=== PATIENT | male | born 1990 | race Caucasian/White ===

== ENCOUNTER 2021-01-19 16:48 | Emergency (ER) | payer SELFPAY ==
[~2021-01-19] VITALS: Ht 182.9 cm; Wt 111.4 kg
[2021-01-19 16:58] VITALS: BP 186/88
== END 2021-01-19 18:19 | disposition home or self-care (01) ==
LOC: ER 16:48
DX: F32.9 Major depressive disorder, single episode, unspecified (principal); Z72.89 Other problems related to lifestyle
CPT/HCPCS: 99281

== ENCOUNTER 2022-05-16 20:36 | Emergency (ER) | payer OTHER ==
[~2022-05-16] VITALS: Ht 182.9 cm; Wt 115.9 kg
[2022-05-16 21:30] LABS: BASOPHILS # (AUTO) 0.1 X10'3 (0-0.2); BASOPHILS % (AUTO) 0.6 % (0-1); EOSINOPHILS % (AUTO) 7.3 % (0-6); HEMOGLOBIN 14.1 g/dl (14.0-17.9); LYMPHOCYTES % (AUTO) 15.4 % (21-51); MEAN CORPUSCULAR HGB CONC 33.6 g/dL (33.0-36.5); MEAN CORPUSCULAR VOLUME 89.2 FL (78-98); MEAN PLATELET VOLUME 8.3 FL (7.4-10.4); MONOCYTES # (AUTO) 1.4 X10'3 (0-0.9); MONOCYTES % (AUTO) 10.3 % (2-12); NEUTROPHILS # (AUTO) 8.7 X10'3 (1.8-7.7); NEUTROPHILS % (AUTO) 66.4 % (42-75); PLATELET COUNT 367 X10'3 (140-440); RED CELL DISTRIBUTION WIDTH 13.4 % (11.5-14.5); WHITE BLOOD COUNT 13.1 X10'3 (4.5-11.0)
[2022-05-16 21:31] LABS: CLARITY,URINE CLEAR (Clear); COLOR,URINE YELLOW (Yellow); GLUCOSE, URINE NEGATIVE (Neg); KETONES,URINE NEGATIVE (Neg); LEUKOCYTE ESTERASE ,URINE NEGATIVE (Neg); NITRITES, URINE NEGATIVE (Neg); OCCULT BLOOD,URINE NEGATIVE (Neg); PH,URINE 5.5 (4.8-8.0); PROTEIN,URINE NEGATIVE (Neg); UROBILINOGEN,URINE 0.2 E.U/dL (0.2-1.0)
[2022-05-16 21:32] LABS: UA COLLECTION TYPE VOIDED
[2022-05-16 21:44] LABS: ALANINE AMINOTRANSFERASE 32 U/L (12-78); ALBUMIN/GLOBULIN RATIO 0.7 (1.1-1.5); ALKALINE PHOSPHATASE 69 IU/L (46-116); ANION GAP 9 (8-16); ASPARTATE AMINO TRANSFERASE 24 U/L (10-37); BILIRUBIN,TOTAL 0.6 MG/DL (0.1-1.0); BLOOD UREA NITROGEN 11 MG/DL (7-18); BUN/CREATININE RATIO 11.2 (5.4-32.0); CALCIUM 8.4 MG/DL (8.5-10.1); CHLORIDE 101 MMOL/L (99-107); CREATININE 0.98 MG/DL (0.60-1.10); GLUCOSE 103 MG/DL (70-104); LIPASE 228 U/L (73-393); POTASSIUM 3.8 MMOL/L (3.5-5.1); SODIUM 139 MMOL/L (135-145); TOTAL CARBON DIOXIDE 28.9 MMOL/L (24-32); TOTAL PROTEIN 7.1 G/DL (6.4-8.2); eGFR 89 ML/MIN
[2022-05-17 02:23] VITALS: BP 158/81
--- NOTE | 2022-05-17 02:30 | NUR ---
I agree with A Rehana Rivas assessment.
[2022-05-17] MEDS ORDERED: ondansetron/PF 4mg/2ml inj IV ONE (03:55)
[2022-05-17] MEDS ORDERED: HYDROcodone/acetaminophen 10/325mg tab PO ONE (04:15)
[2022-05-17] MEDS: morphine 4 MG/ML inj SYRINge IV PRN ×2 (04:21→04:37)
== END 2022-05-17 04:39 | disposition home or self-care (01) ==
LOC: ER 20:36
DX: R10.84 Generalized abdominal pain (principal); K92.1 Melena; K92.2 Gastrointestinal hemorrhage, unspecified
CPT/HCPCS: 36415; 74176; 80053; 81003; 83690; 85025; 96374; 99284; J2405

== ENCOUNTER 2022-10-09 08:09 | Emergency (ER) | payer OTHER ==
[2022-10-09] VITALS (12 sets, daily range): BP systolic 111–156; BP diastolic 65–98
[~2022-10-09] VITALS: Ht 182.9 cm; Wt 113.4 kg
[~2022-10-09 08:09] MED LIST: ADAL40PE SUBCUT; HYDR-3972 PO; ONDA-104 PO
[2022-10-09 09:02] LABS: BASOPHILS # (AUTO) 0.1 X10'3 (0-0.2); BASOPHILS % (AUTO) 1.6 % (0-1); EOSINOPHILS # (AUTO) 0.6 X10'3 (0-0.9); EOSINOPHILS % (AUTO) 7.5 % (0-6); LYMPHOCYTES # (AUTO) 1.8 X10'3 (1.1-4.8); LYMPHOCYTES % (AUTO) 22.4 % (21-51); MEAN CORPUSCULAR HEMOGLOBIN 20.9 PG (27.0-31.0); MEAN CORPUSCULAR HGB CONC 30.9 g/dL (33.0-36.5); MEAN CORPUSCULAR VOLUME 67.5 FL (78-98); MEAN PLATELET VOLUME 6.6 FL (7.4-10.4); MONOCYTES # (AUTO) 0.8 X10'3 (0-0.9); MONOCYTES % (AUTO) 10.7 % (2-12); NEUTROPHILS # (AUTO) 4.5 X10'3 (1.8-7.7); NEUTROPHILS % (AUTO) 57.8 % (42-75); PLATELET COUNT 504 X10'3 (140-440); RED BLOOD COUNT 2.23 X10'6 (4.70-6.10); RED CELL DISTRIBUTION WIDTH 24.9 % (11.5-14.5); WHITE BLOOD COUNT 7.9 X10'3 (4.5-11.0)
[2022-10-09 09:09] LABS: HEMOGLOBIN 4.6 g/dl (14.0-17.9)
[2022-10-09 09:12] LABS: ALANINE AMINOTRANSFERASE 39 U/L (12-78); ALBUMIN 1.6 G/DL (3.4-5.0); ALBUMIN/GLOBULIN RATIO 0.3 (1.1-1.5); ALKALINE PHOSPHATASE 133 IU/L (46-116); ANION GAP 9 (8-16); ASPARTATE AMINO TRANSFERASE 36 U/L (10-37); BILIRUBIN,TOTAL 0.3 MG/DL (0.1-1.0); BLOOD UREA NITROGEN 4 MG/DL (7-18); BUN/CREATININE RATIO 4.3 (10.0-20.0); CALCIUM 8.4 MG/DL (8.5-10.1); CHLORIDE 102 MMOL/L (99-107); CREATININE 0.92 MG/DL (0.60-1.10); GLUCOSE 114 MG/DL (70-104); POTASSIUM 3.7 MMOL/L (3.5-5.1); SODIUM 137 MMOL/L (135-145); TOTAL CARBON DIOXIDE 25.6 MMOL/L (24-32); TOTAL PROTEIN 6.2 G/DL (6.4-8.2); eGFR > 90 ML/MIN
[2022-10-09 09:24] LABS: PLATELET ESTIMATE INCREASED
[2022-10-09 09:25] LABS: ANISOCYTOSIS 3+; HYPOCHROMASIA 1+; LARGE PLATELETS FEW; MICROCYTOSIS 2+
[2022-10-09 09:26] LABS: SCHISTOCYTES FEW; TEAR DROP CELLS FEW
[2022-10-09] MEDS ORDERED: PRED10TA23 PO (13:08)
[2022-10-09] MEDS ORDERED: ondansetron 4mg rapidly disintigrating tab PO ONE (13:15)
--- NOTE | 2022-10-09 13:15 | NUR ---
Pt with nausea. Per Dr. Loo, RN to order and administer 8 mg oral zofran. RN ordered via [facility].
[2022-10-09 18:29] LABS: HEMATOCRIT 23.1 % (42.0-52.0); HEMOGLOBIN 7.5 g/dl (14.0-17.9); MEAN CORPUSCULAR HEMOGLOBIN 23.8 PG (27.0-31.0); MEAN CORPUSCULAR HGB CONC 32.3 g/dL (33.0-36.5); MEAN CORPUSCULAR VOLUME 73.6 FL (78-98); MEAN PLATELET VOLUME 6.8 FL (7.4-10.4); PLATELET COUNT 443 X10'3 (140-440); RED BLOOD COUNT 3.14 X10'6 (4.70-6.10); RED CELL DISTRIBUTION WIDTH 24.4 % (11.5-14.5); WHITE BLOOD COUNT 9.4 X10'3 (4.5-11.0)
== END 2022-10-09 19:54 | disposition home or self-care (01) ==
LOC: ER 08:10
DX: D64.9 Anemia, unspecified (principal); R53.83 Other fatigue
CPT/HCPCS: 36415; 36430; 80053; 85008; 85025; 85027; 85651; 86140; 86885; 86900; 86901; 86920; 99291; J7030; P9016

== ENCOUNTER 2022-10-24 10:57 | Emergency (ER) | payer OTHER ==
[~2022-10-24] VITALS: Ht 182.9 cm; Wt 109.1 kg
[2022-10-24] VITALS (9 sets, daily range): BP systolic 134–169; BP diastolic 74–94
[~2022-10-24 10:57] MED LIST changes: +PRED10TA23 PO
[2022-10-24] MEDS ORDERED: normal saline 1000ml 1,000 ML IV ONE (11:35)
[2022-10-24 11:57] LABS: BASOPHILS # (AUTO) 0.1 X10'3 (0-0.2); BASOPHILS % (AUTO) 1.1 % (0-1); EOSINOPHILS # (AUTO) 0.1 X10'3 (0-0.9); EOSINOPHILS % (AUTO) 1.1 % (0-6); HEMATOCRIT 22.7 % (42.0-52.0); LYMPHOCYTES # (AUTO) 1.7 X10'3 (1.1-4.8); LYMPHOCYTES % (AUTO) 17.8 % (21-51); MEAN CORPUSCULAR HEMOGLOBIN 20.7 PG (27.0-31.0); MEAN CORPUSCULAR HGB CONC 29.2 g/dL (33.0-36.5); MEAN CORPUSCULAR VOLUME 70.7 FL (78-98); MEAN PLATELET VOLUME 8.1 FL (7.4-10.4); MONOCYTES % (AUTO) 10.3 % (2-12); NEUTROPHILS # (AUTO) 6.7 X10'3 (1.8-7.7); NEUTROPHILS % (AUTO) 69.7 % (42-75); PLATELET COUNT 423 X10'3 (140-440); RED BLOOD COUNT 3.21 X10'6 (4.70-6.10); RED CELL DISTRIBUTION WIDTH 26.5 % (11.5-14.5); WHITE BLOOD COUNT 9.7 X10'3 (4.5-11.0)
[2022-10-24 12:00] LABS: HEMOGLOBIN 6.6 g/dl (14.0-17.9)
[2022-10-24 12:11] LABS: ALANINE AMINOTRANSFERASE 32 U/L (12-78); ALBUMIN 2.5 G/DL (3.4-5.0); ALBUMIN/GLOBULIN RATIO 0.5 (1.1-1.5); ALKALINE PHOSPHATASE 80 IU/L (46-116); ANION GAP 8 (8-16); ASPARTATE AMINO TRANSFERASE 20 U/L (10-37); BILIRUBIN,TOTAL 0.7 MG/DL (0.1-1.0); BLOOD UREA NITROGEN 11 MG/DL (7-18); BUN/CREATININE RATIO 11.7 (10.0-20.0); CALCIUM 9.1 MG/DL (8.5-10.1); CHLORIDE 100 MMOL/L (99-107); CREATININE 0.94 MG/DL (0.60-1.10); GLUCOSE 101 MG/DL (70-104); POTASSIUM 4.1 MMOL/L (3.5-5.1); SODIUM 134 MMOL/L (135-145); TOTAL CARBON DIOXIDE 25.6 MMOL/L (24-32); TOTAL PROTEIN 7.6 G/DL (6.4-8.2); eGFR > 90 ML/MIN
[2022-10-24 12:16] LABS: ANISOCYTOSIS 3+; GIANT PLATELET FEW; MICROCYTOSIS 1+; PLATELET ESTIMATE NORMAL; TOTAL CELLS COUNTED 100
[2022-10-24 12:17] LABS: POLYCHROMASIA FEW
[2022-10-24 12:18] LABS: ELLIPTOCYTES FEW; HYPOCHROMASIA 2+; LARGE PLATELETS FEW; SCHISTOCYTES FEW
--- NOTE | 2022-10-24 19:00 | NUR ---
MD ASENCIO AWARE OF PTS HEART RATE, CLEARED FOR DISCHARGE
== END 2022-10-24 19:02 | disposition home or self-care (01) ==
LOC: ER 10:57
DX: Z00.8 Encounter for other general examination (principal)
CPT/HCPCS: 36415; 36430; 80053; 85007; 85025; 86885; 86900; 86901; 86920; 96360; 96361; 99285; J7030; P9016